=== PATIENT | female | born 1985 | race Caucasian/White ===

== ENCOUNTER 2018-12-22 13:04 | Outpatient (CLI) | payer SELFPAY ==
[~2018-12-22 13:04] MED LIST: CEPH-13 PO; HYDR-385 PO; PNV1CAPS53
[2018-12-22 13:46] LABS: PLATELET COUNT, AUTOMATED 178 K/uL (150-450)
--- NOTE | 2018-12-22 14:16 | RADIOLOGY IMAGING REPORT ---
FACILITY: [facility] PATIENT NAME: Padmaja Shields : 1985 MR: [id number] V: [id number] EXAM DATE: ORDERING PHYSICIAN: ANDI CEDEÑO TECHNOLOGIST: Location: [facility] Patient: Padmaja Shields : 1985 Visit/Account:[id number] Date of Sevice: 12/22/2018 Limited OB ultrasound Indication: Evaluate placental location Comparison: None available FINDINGS: Intrauterine gestations: one presentation: Vertex, spine maternal left heart rate: 158 bpm Amniotic fluid index: Not interrogated Placenta: Fundal and posterior without previa Uterus: gravid, otherwise normal IMPRESSION: 1. Single live intrauterine gestation with cephalic presentation. 2. Placenta fundal and posterior. Report Dictated By: James Bacon DO at 12/22/2018 2:09 PM Report E-Signed By: James Bacon DO at 12/22/2018 2:12 PM WSN:[id number]
--- NOTE | 2018-12-22 15:12 | History & Physical ---
History of Present Illness Age of Patient: 33 : 5 Para or TPAL: 4 EDC per U/S: Mar 21, 2019 Estimated Gestational Age: 27 (09/27) Chief Complaint "Vaginal bleeding at 27 weeks" History of Present Illness Pt is a 33 y/o at 27 09/27 with report of bleeding on and off since 12/18. Pt states she has had what she would characterize as spotting but one episode of bright bleeding with a small clot. Denies contractions or low back pain, dysuria or hematuria. Denies intercourse in the last 24-48 hours. Pt denies any other abnormal vaginal or foul smelling discharge. Denies LOF. Pt reports +FMShe has been in contact with her client renewal specialist Karely Costello CPM. Pt is accompanied by her Paul. History Patient's Blood Type: O Negative Rubella Status: Non-Immune Obstetrical History: 01/03 home , term with PPH 05/06 home ,term with labial tear 10/06 home term 07/09 home term with PPH Current has been otherwise uncomplicated. All of patients previous early antibody screens have been negative. No prior history of receiving Rhogam, declined Rhogam with current care provider. Past Medical History: PMH is uncomplicated , denies surgeries or prior hospitalizations Allergies: Coded Allergies: No Known Drug Allergies (Unverified , 12/24/12) Social History: Pt is , denies alcohol tobacco or recreational drug use. Med Rec Home Meds Reported Medications Pnv Comb.no58/Iron Bisgly/Fa ( CAPSULE) 1 Each Capsule 12/24/12 Discontinued Reported Medications Cephalexin (KEFLEX) 500 Mg Capsule, 500 MG PO QID 12/24/12 Review of Systems Gastrointestinal: No Nausea, No Vomiting, No Diarrhea, No Constipation Genitourinary: No Dysuria, No Hematuria Musculoskeletal: No Pain (Denies abdominal or low back pain. ) Exam General Exam General Apperance: Alert/Awake/No Acute Distress Neuro: No Gross deficits Abdomen: Soft, Non-Tender, Non-Distended, Gravid - Non-Tender Vaginal Discharge/Fluid?: Small Amount (small amount of old blood in the vault, a small amount of bright blood mixed with mucous noted at OS along with a 1x1 cm cervical polyp. Not actively bleeding from polyp and not friable, wet mount obtained. ) Cervical Dialation: 0 (Cervix appears closed via speculum exam) Presentation: Vertex Uterine Contractions(Q min): 0 UC Resting Tone: Soft Fetus Feeling Movement?: Yes Heart Tone Variabilty: Moderate FHT Accelerations: 15X15 FHT Decelerations: None FHT Category: I (reactive for gestational age) Medical Decision Making Data Points Result Diagram: 12/22/18 1338 Wet mount obtain, Type and screen O negative, antibody screen is negative. Imaging Ultrasound/Imaging [facility] limited US done. FHR present, FM present and posterior fundal placenta noted. 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 Pt declined Rhogam today, reviewed risk of isoimmunization to the fetus if bleeding is unknown and could potentially be from other sources such as placenta although no evidence of abruption or previa (posterior fundal) May reconsider but will have pt sign against AMA (3) Vaginal bleeding during Assessment & Plan: No active bleeding currently, H/H WNL, Recommend pelvic rest the remainder of secondary to possibility of continued bleeding. (4) Polyp at cervical os Assessment & Plan: Again recommend pelvic rest. Informed of risks of continued bleeding (5) Encounter for related examination in second trimester ANDI CEDEÑO CNM Dec 22, 2018 15:12
--- NOTE | 2018-12-22 15:17 | OB/GYN Discharge Summary ---
Discharge Summary Reason for Hosp/Final Diag: (1) History of hemorrhage Status: Resolved (2) Rh negative status during (3) Vaginal bleeding during Hospital Course & Plan: 1. Reviewed risks of bleeding in , s/s of labor and emergent follow up indications 2. Follow up with CPM as indicated 3. Reviewed risk of isoimmunization 2ndary to bleeding in . Signed AMA for Rhogam. (4) Polyp at cervical os Status: Chronic Hospital Course & Plan: Pelvic rest remainder of (5) Encounter for related examination in second trimester Weight (Pounds): 142 Result Diagram: 12/22/18 1338 Condition: No Change Discharge: Home, Self [facility] Meds Reported Medications Pnv Comb.no58/Iron Bisgly/Fa ( CAPSULE) 1 Each Capsule 12/24/12 Discontinued Reported Medications Cephalexin (KEFLEX) 500 Mg Capsule, 500 MG PO QID 12/24/12 Follow up in: Keep scheduled appoint Discharge Diet: As Tolerates Discharge Activity: No Heavy Lifting > 10lb, Pelvic Rest Problem Qualifiers (1) Rh negative status during : Trimester: second trimester Qualified Codes: O26.892 - Other specified related conditions, second trimester; Z67.91 - Unspecified blood type, rh negative ANDI CEDEÑO CNM Dec 22, 2018 15:17
[2018-12-22 15:25] VITALS: BP 109/60
== END 2018-12-22 15:35 | disposition home or self-care (01) ==
LOC: L&D 13:04 → OB 13:04 → UNDOADMIN 13:04 → OB 13:04 → UNDODISIN 15:35 → L&D 15:35 → EDSTATUS 12-25 06:50
PROVIDERS: ATTEND Obstetrics & Gynecology
DX: O46.92 Antepartum hemorrhage, unspecified, second trimester (principal); O34.42 Maternal care for other abnormalities of cervix, second trimester; O36.0920 Maternal care for other rhesus isoimmunization, second trimester, not applicable or unspecified; Z3A.27 27 weeks gestation of pregnancy
CPT/HCPCS: 36415; 59025; 76815; 85025; 85461; 86850; 86900; 86901; 87210; 99213